=== PATIENT | female | born 1955 | race Caucasian/White ===

== ENCOUNTER 2022-04-08 20:14 | Emergency (ER) | payer MEDICARE, OTHER, SELFPAY ==
[2022-04-08 20:29] VITALS: BP 161/99; PULSE 83; RESP 20; TEMP 36.4; O2SAT 91; BMI 23.9
--- NOTE | 2022-04-08 20:38 | CRLHL7_ITS ---
For Patients: As a result of the Century Cures Act, medical imaging exams and procedure reports are released immediately into your electronic medical record. You may view this report before your referring provider. If you have questions, please contact your health care provider. INDICATION: Fall. TECHNIQUE: Noncontrast CT images acquired through the brain. COMPARISON: None. FINDINGS: The ventricles and sulci are within normal limits for patient age. No mass effect or midline shift. The estrada-white differentiation is maintained. No acute intracranial hemorrhage or pathologic extra-axial fluid collection. Mild atherosclerotic calcifications in the carotid siphons. Anterior right frontal scalp laceration. No calvarial fracture. The globes are symmetric. Minimal mucosal thickening in the ethmoid air cells. The mastoid air cells are clear. IMPRESSION: 1. No acute intracranial hemorrhage or mass effect. 2. Anterior right frontal scalp laceration. No calvarial fracture. Please note that all CT scans at this facility use dose modulation, iterative reconstruction, and/or weight-based dosing when appropriate to reduce radiation dose to as low as reasonably achievable. Dictated by Esteban Bills MD @ 04/08/2022 10:15:57 PM (Electronically Signed)
--- NOTE | 2022-04-08 20:38 | CRLHL7_ITS ---
For Patients: As a result of the Cures Act, medical imaging exams and procedure reports are released immediately into your electronic medical record. You may view this report before your referring provider. If you have questions, please contact your health care provider. Indication: Fall, knee injury. Technique: Three views. Comparison: None. Findings/Impression: No fracture or malalignment. Chondrocalcinosis in the medial and lateral menisci. No joint space narrowing. No large joint effusion. Prominent prepatellar soft tissue swelling/contusion. Dictated by Kike Huerta MD @ 04/08/2022 10:29:28 PM (Electronically Signed)
--- NOTE | 2022-04-08 23:59 | ED.NURSE ---
Dr. Sorensen talked to pt about tdap and refused at this time. looks as if the last td was 07/26/2013
--- NOTE | 2022-04-09 00:06 | ED.GENADULT ---
HPI - General Adult General Date Seen: 04/09/22 Chief complaint: Head Injury/Pain Stated complaint: Fell, hit head Time Seen by Provider: 04/08/22 20:17 Source: patient History of Present Illness HPI narrative: Patient is a 66-year-old woman who presents after losing her balance and falling, hitting her head on a door frame. No loss of consciousness, vomiting, headache. She does not take any blood thinners. She is here with her . He corroborates her story. She did hit her left knee, she is ambulatory without difficulty. She has a large area of swelling on her knee however. That part is sore. She has a small bruise on her left hand as well although that isn't hurting. She denies any neck pain. She has a large laceration vertically oriented on her head, and this blood significantly. Her last tetanus was in 2012. She has no other injuries or complaints. She does not feel dizzy or lightheaded. Her is concerned because sometimes she loses her balance. Apparently this is a fairly sporadic thing but he wonders if they should talk to her primary doctor about it. She feels that generally her balance is good, although she concedes that every few years she does lose her balance and fall, she suffered a broken arm a few years ago due to something similar. Related Data Home Medications Medication Instructions Recorded Confirmed alendronate 35 mg tablet mg PO 04/08/22 fluoxetine 10 mg capsule mg 04/08/22 omeprazole 20 mg capsule,delayed mg 04/08/22 release Allergies Allergy/AdvReac Type Severity Reaction Status Date / Time No Known Drug Allergies Allergy Verified 04/08/22 20:26 Review of Systems Status of ROS: Reports: 10 or more systems reviewed and unremarkable except as noted in History and below [facility] Social History Smoking Status: Former smoker Do you use any of these nicotine containing products: None Second hand tobacco smoke exposure: No How often do you have a drink containing alcohol: 2-3 times a week How many standard drinks containing alcohol do you have on a typical day: 1 or 2 How often do you have six or more drinks on one occasion: Never AUDIT-C Alcohol total score: 3 Non-prescribed substance use: denies use service: No Exam Narrative: Exam Narrative: Vital signs as noted below. In general, an alert, nontoxic woman. Large laceration on her forehead, bleeding controlled. Head: Normocephalic. Eyes: Pupils are equal in reactive. Extraocular movements are full. Conjunctivae are normal. ENT: Mucous membranes are moist. She has a laceration in the mid forehead, vertically oriented, approximately 4.5 cm in length. Bleeding controlled at the initial examination. This extends down to the skull. Neck: Supple without lymphadenopathy. Nontender to palpation. Heart: Regular rate and rhythm. No murmur or rub. Lungs: Clear bilaterally. No increased work of breathing, crackles or wheezes. Abdomen: Soft and nontender. No organomegaly. Extremities: Well perfused. No edema. No calf tenderness. Pulses intact. Small bruise on the left hand, no bony tenderness, no significant swelling. On the, she has a large hematoma on the upper medial aspect of the knee, tenderness there. No bony tenderness, full range of motion, no effusion. Otherwise, extremities are atraumatic. Neurologic: Patient is alert and oriented to person and place. Speech is fluent. Face is symmetric. Moves all extremities equally. Affect: Normal. Skin: Warm and dry. Well perfused. Const: Vital Signs, click to edit/add: Vital Signs - 24 hr 04/08/22 20:29 Temperature 97.5 F L Pulse Rate [Femora l] 83 Respiratory Rate 20 Blood Pressure [Le ft Upper Arm] 161/99 H Pulse Oximetry 91 Oxygen Delivery Me thod Room Air Documenting provider has reviewed patient's vital signs: yes Course Course Hospital Course: Following initial evaluation, patient had a CT scan of the head as well as x-rays of the left knee. By my review, x-rays of the knee are negative for bony fracture or dislocation. CT of the head is negative for hemorrhage. Final radiology report of both the knee and head CT are negative for acute findings. Attention was then turned to the laceration. Procedure note: I anesthetized the wound with lidocaine with epinephrine. It was then cleaned with normal saline. Explored without evidence of foreign body. During irrigation, there were 2 arterial bleeding sites that began to bleed. These had to be identified and tied off using 4-0 Vicryl. Following this, good hemostasis was achieved. I then used [address] deep interrupted sutures, a total of 4, to approximate the skin. I then placed a total of 12 superficial interrupted sutures using 6 0 nylon to close the skin. She tolerated this well, no immediate complication. Antibiotic ointment was placed by the nurse. We discussed wound care including Vaseline ointment during healing, suture removal in 5-7 days, sunscreen daily for 6 months. Return for any signs of infection. Return to the ER for any signs of significant head injury such as severe headache, vomiting, altered mentation. Otherwise, ice can be used on the scalp wound and the knee is needed. Vital Signs Vital signs: Initial Vital Signs Temperature 97.5 F L 04/08/22 20:29 Temperature Source Temporal Artery Scan 04/08/22 20:29 Pulse Rate 83 04/08/22 20:29 Pulse Rhythm 04/08/22 20:29 Respiratory Rate 20 04/08/22 20:29 Blood Pressure 161/99 H 04/08/22 20:29 Blood Pressure Mean 119 04/08/22 20:29 Pulse Oximetry 91 04/08/22 20:29 Oxygen Delivery Method 04/08/22 20:29 Vital Signs Temperature 97.5 F L 04/08/22 20:29 Pulse Rate 83 04/08/22 20:29 Respiratory Rate 20 04/08/22 20:29 Blood Pressure 161/99 H 04/08/22 20:29 Pulse Oximetry 91 04/08/22 20:29 Oxygen Delivery Method 04/08/22 20:29 Temperature 97.5 F L 04/08/22 20:29 Pulse Rate 83 04/08/22 20:29 Respiratory Rate 20 04/08/22 20:29 Blood Pressure 161/99 H 04/08/22 20:29 Pulse Oximetry 91 04/08/22 20:29 Oxygen Delivery Method 04/08/22 20:29 Discharge Plan Discharge Clinical Impression: Complex laceration of forehead, Contusion of knee, left Patient Disposition: Home, Self-Care Condition: Improved Instructions: Laceration (ED) Additional Instructions: Suture removal air clinic in 5-7 days. Tylenol as needed. Ice. Ointment such as Vaseline to laceration liberally over the next week while healing. Return if any signs of infection or significant head injury such as severe headache, vomiting, altered mentation etcetera. Prescriptions: No Action alendronate 35 mg tablet PO fluoxetine 10 mg capsule omeprazole 20 mg capsule,delayed release(DR/EC) Follow Up/Referrals: Merlyn Dacosta MD [Primary Care Provider] - Stand Alone Forms: Embly Info Instructions
== END 2022-04-09 00:03 | disposition home or self-care (01) ==
PROVIDERS: Emergency Provider Emergency Medicine; PCP Internal Medicine
DX: S01.81XA Laceration without foreign body of other part of head, initial encounter (principal); W01.0XXA Fall on same level from slipping, tripping and stumbling without subsequent striking against object, initial encounter
CPT/HCPCS: 13132; 70450; 73562; 99284

== ENCOUNTER 2022-06-02 07:15 | Outpatient (CLI) | payer MEDICARE, OTHER, SELFPAY ==
--- OUTSIDE RECORDS SUMMARY | 2022-06-02 07:18 | XMS_ITS | Clinical Summary ---
:1955 Author Organization [facility] Address [address] [place] [address] Care Team Providers Name Role Phone Unavailable Primary Care Provider Unavailable Source Comments Patient records contain information from all sites at [facility]. For routine questions regarding patient records, call [phone] during business hours, M-F 8:00 AM - 5:00 PM Central Time. Record requests for emergency care only can be directed to [phone] at any time.[facility] Allergies No known active allergies Immunizations Name Administration Dates Next Due SARS-COV-2 (COVID-19) - PFIZER (12 years 06/06/2021, 021, 10/12/2020 or older) SARS-COV-2 (COVID-19) - PFIZER TS(12 01/31/2022 years or older) Social History Tobacco Use Types Packs/Day Years Used Date Smoking Tobacco: Never Assessed Sex Assigned at Date Recorded Not on file Plan of Treatment Health Maintenance Due Date Last Done Comments Bone Density Scan (Osteoporosis 1954 Screen) CT Colonography 1955 Cologuard 1955 Colonoscopy 1955 Colorectal Cancer Screening 1955 FIT 1955 Fasting Glucose for Diabetes 1955 Screening Hepatitis C Screening 1955 Mammogram 1955 Depression Screening (Annual 09/07/2021 PHQ-2) Fall Risk Screen (Annual) 09/07/2021 COVID-19 Vaccine (5 - Booster for 03/28/2022 01/31/2022, , Pfizer series) 11/02/2020, Additional history exists Influenza Vaccine (#1) 2022 05/24/2021, 05/14/2019, 05/22/2018, Additional history exists DTaP,Tdap,and Td Vaccines (2 - Td 07/26/2023 07/26/2013, or Tdap) Zoster Vaccines Completed 07/26/2019, 05/18/2019 Pneumococcal vaccine (65+ years) Completed 05/28/2021, Insurance Payer Benefit Plan / Subscriber ID Effective Phone Address T ype Group Dates MEDICARE RAILROAD [id number] 2019-Prese [address] [place] [address] MEDICA MEDICA PRIME [id number] 2020-Prese [phone] [address] [place] [address]
--- OUTSIDE RECORDS SUMMARY | 2022-06-02 07:18 | XMS_ITS | Encounter Summary ---
:1955 Author Organization [facility] Address [address] [place] [address] Care Team Providers Name Role Phone Unavailable Primary Care Provider Unavailable Reason for Visit Appointment Request (Routine) - Closed Specialty Diagnoses / Procedures Referred By Contact Refer red To Contact Family Medicine Referral ID Status Reason Start Date Expiration Date Visits Requ ested Visits Authorized [id number] Closed 06/01/2021 06/01/2022 1 1 Encounter Details Date Type Department Care Team Description 06/06/2021 Immunization Department of Family Medicine, [facility], in [place], [place] [address], [place] [address] Social History Tobacco Use Types Packs/Day Years Used Date Smoking Tobacco: Never Assessed Sex Assigned at Date Recorded Not on file documented as of this encounter Plan of Treatment Not on filedocumented as of this encounter Visit Diagnoses Not on filedocumented in this encounter
--- OUTSIDE RECORDS SUMMARY | 2022-06-02 07:18 | XMS_ITS ---
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 Medications Name Status Start Date Stop Date ? ? acetaminophen 300 mg-codeine 30 mg tablet Unknown ? Not available Afluria 9556-2801(PF) 45 mcg (15 mcg x 3)/0.5 mL Unknown ? Not available intramuscular syringe amoxicillin 500 mg capsule Active ? Not a vailable Calcium 500 + D Active ? Not available 1 tab po daily ciprofloxacin 500 mg tablet Unknown ? Not available diazepam 5 mg tablet Unknown ? Not availab le doxycycline hyclate 100 mg tablet Unknown ? Not available estradiol 1 mg tablet Unknown ? Not availa ble Fluarix Quad 9225-8256 (PF) 60 mcg (15 mcg x 4)/0.5 mL IM Unknow n ? Not available syringe Flucelvax Quad 1358-9938 (PF) 60 mcg (15 mcg x 4)/0.5 mL Active ? Not available IM syringe Fluzone 6541-3343 45 mcg (15 mcg x 3)/0.5 mL intramuscular Unkno wn ? Not available suspension hydrocodone 10 mg-acetaminophen 325 mg tablet Unknown ? Not available hydrocodone 5 mg-acetaminophen 325 mg tablet Active ? Not available Maxalt Active ? Not available prn migraines naproxen 500 mg tablet Unknown ? Not avail able omeprazole 20 mg capsule,delayed release Active ? Not available ondansetron HCl 8 mg tablet Unknown ? Not available One-A-Day Womens Formula Active ? Not chela ilable 1 tab po daily progesterone micronized 100 mg capsule Unknown ? Not available Prometrium Unknown ? Not available 100 mg PO q hs rizatriptan 10 mg disintegrating tablet Unknown ? Not available Problems Name Status Onset Date Source ? Migraine Active ? History Gastroesophageal Reflux Disease Active ? History Calculus of Kidney and Ureter Active ? Hi story Procedures Date Name Performed by ? 02/19/2012 Colonoscopy Information not avsharon zhang Notes: Diverticula and int ernal hemorrhoids identified; 2 benign polyps removed; repeat recommended in 10 years. 04/07/1984 Information not avai lable 05/08/1981 Information not avai lable 02/04/2013 MAMMO, Screening, Digital, Bilateral Inf ormation not available 02/04/2013 Mammogram, Screening Information not chela ilable 04/27/2014 MAMMO, Screening, Digital, Bilateral Inf ormation not available 08/08/2015 MAMMO, Screening, Digital, Bilateral Inf ormation not available 12/25/2015 X-ray, Shoulder Information not avai lable Results Lab Results Date Name Specimen Result Interpretation Description Value Range Status Address ? 09/26/2015 Urinalysis ? Color dk yellow ? Final [facility] Complete, Clinic (Lab Reflex Culture Se rvices): [address], [place] ? ? ? Clarity cloudy ? Final [facility] ta Clinic (La b Services): [address], [place] ? ? ? Sp [place], 1.010 1.001-1 Final [facility] Urine .035 Clinic (La b Services): [address], [place] ? ? ? Ph 6.0 4.0-8.0 [facility] ([facility] [address], [place] ? ? ABNORMAL Protein trace negativ Final [facility] [place] Clinic (La b Services): [address], [place] ? ? ? Glucose negative negativ Final [facility] [place] e Clinic (La b Services): [address], [place] ? ? ? Ketones negative negativ Final [facility] [place] e Clinic (La b Services): [address], [place] ? ? ABNORMAL Blood 3+ negativ Final [facility] rotary furnace tender e Clinic (La b Services): [address], [place] ? ? ABNORMAL Leukocyte 3+ negativ Final [facility] Esterase e Clinic ( Lab Services): [address], [place] ? ? ABNORMAL Nitrites positive negativ Final [facility] Aaron e Clinic (La b Services): [address], [place] 09/26/2015 Urinalysis, ? Performed manual ? Gladis horvath [facility] Microscopic Clini c (Lab Services): [address], [place] ? ? ABNORMAL Wbc packed 0-2 Final [facility] ta /hpf /hpf Clinic (La b Services): [address] [facility], [place] ? ? ? WBC Clumps present 0-2 Final [facility]hpf Clinic ([place] b Services): [address], [place] ? ? ABNORMAL Rbc 10-20 0-2 Final [facility] ta /hpf /hpf Clinic (La b Services): [address] [facility], [place] ? ? ? Epi Cell 0-2 /hpf ? Final [facility] [place] Clinic (La b Services): [address] [facility], [place] ? ? ABNORMAL Bacteria mod /hpf [facility]-fe [facility] ([facility] Services[facility] [address] [place] [address] 09/26/2015 Culture, Urine URINE ? Culture ? ? ? [facility] Clinic (La b Services): [address] [place] [address] 07/19/2015 Lipid Panel, ? Cholesterol 195 mg/dL 100-1 99 Final [facility] Serum mg/dL Clinic (La b Services): [address] [place] [address] ? ? ? Triglycerid 59 mg/dL 30-[address] [facility] es mg/dL Clinic (La b Services): [address] [place] [address] ? ? High HDL 85 mg/dL 40-59 Final [facility] ta Cholesterol mg/dL Clini c (Lab Services): [address] [place] [address] ? ? ? LDL 98 mg/dL 0-100 Final [facility] Cholesterol mg/dL Clini c (Lab Services): [address] 07/19/2015 Glucose, Serum High Glucose 102 mg/dL 75-99 Final [facility] or Plasma mg/dL Clinic (Lab Services): [address] [place] [address] 03/12/2015 Dermatopatholo ? No ? ? ? [facility] gy, Tissue observation C turner recorded. (Dermat opat hology Services): [address] [facility] 04/28/2014 CBC W/ Auto ? Wbc 6.3 x10-3 3.9-11. Gladis l [facility] Diff uL 3 x10-3 Clinic (L ab uL Services): [address] [place] [address] ? ? ? Rbc 4.17 4.10-5. Final [facility] [place] x10-6 uL 30 Clinic ( Lab x10-6 Services): uL [address], [place] ? ? ? Hgb 13.1 12.0-16 Final [facility] [place] gm/dL .0 Clinic (La b gm/dL Services): [address], [place] ? ? ? Hct 38.6 % 37.0-47 Final [facility] [place] .0 % Clinic (La b Services): [address], [place] ? ? ? Mcv 93 fL 83-99 Final [facility] fL Clinic (La b Services): [address], [place] ? ? ? Mch 31.4 pg 28.0-32 Final Mid [place] ta .0 pg Clinic (La b Services): [address], [place] ? ? ? Mchc 33.9 g/dL 32.0-36 Final Mid [facility] winnie .0 g/dL Clinic (L ab Services): [address], [place] ? ? ? Platelets 192 x10-3 150-400 Final [facility] uL x10-3 Clinic (La b uL Services): [address], [place] ? ? ? Rdw 13.7 10.9-15 Final [facility] [place] .7 Clinic (La b Services): [address], [place] ? ? ? Neutrophils 59.4 % ? Final Mid Aaron % Clinic (La b Services): [address], [place] ? ? ? Lymphocytes 28.9 % ? Final [facility] % Clinic (La b Services): [address], [place] ? ? ? Monocytes% 9.2 % ? Final [facility] [place] Clinic (La b Services): [address], [place] ? ? ? Eosinophils 1.7 % ? Final [facility] % Clinic (La b Services): [address], [place] ? ? ? Basophils% 0.8 % ? Final [facility] [place] Clinic (La b Services): [address], [place] ? ? ? Neut# 3.80 1.80-7. Final [facility] [place] x10-3 uL 70 Clinic ( Lab x10-3 Services): uL [address], [place] ? ? ? Lymph# 1.80 1.00-4. Final Mid [place] ta x10-3 uL 80 Clinic ( Lab x10-3 Services): uL [address] , [place] ? ? ? Monos# 0.60 0.00-0. Final [facility] [place] ta x10-3 uL 80 Clinic ( Lab x10-3 Services): uL [address] , [place] ? ? ? Eos# 0.10 0.00-0. Final [facility] [place] x10-3 uL 45 Clinic ( Lab x10-3 Services): uL [address] , [place] ? ? ? Baso# 0.10 0.00-0. Final [facility] [place] x10-3 uL 20 Clinic ( Lab x10-3 Services): uL [address] [facility], [place] 04/28/2014 Lipid Panel ? Cholesterol 184 mg/dL 100-19 9 Final [facility] mg/dL Clinic (La b Services): [address] [facility], [place] ? ? ? Triglycerid 75 mg/dL 30-149 Final [facility] es mg/dL Clinic (La b Services): [address] [facility], [place] ? ? High HDL 70 mg/dL 40-59 Final Mid [facility] ta Cholesterol mg/dL Clini c (Lab Services): [address] [facility], [place] ? ? ? LDL 99 mg/dL 0-100 Final Mid [facility] ta Cholesterol mg/dL Clini c (Lab Services): [address] [place] [address] 04/28/2014 Comprehensive Low Total 6.0 g/dL 6.2-7.8 Fin al [facility] Metabolic Protein g/dL Clinic (Lab Panel Services): [address] [place] [address] ? ? ? Albumin 3.7 g/dL 3.2-4.6 Final [facility] [place] g/dL Clinic (La b Services): [address] [facility], [place] ? ? ? Calcium 9.5 mg/dL 8.4-10. Final Mid [facility] 2 mg/dL Clinic (L ab Services): [address] [facility], [place] ? ? ? Glucose 88 mg/dL 75-99 Final Mid Da winnie mg/dL Clinic (La b Services): [address] [facility], [place] ? ? ? Total 0.8 mg/dL 0.1-1.3 Final [facility] [place] Bilirubin mg/dL Clinic (Lab Services): [address] , [place] ? ? ? Alk Phos 77 U/L 40-120 Final [facility] [place] rotary furnace tender U/L Clinic (La b Services): [address] , [place] ? ? ? Alt 22 U/L 8-40 Final [facility] U/L Clinic (La b Services): [address] , [place] ? ? ? Ast 24 U/L 17-39 Final [facility] U/L Clinic (La b Services): [address] , [place] ? ? ? Sodium 138 mEq/L 135-145 Final [facility] [place] mEq/L Clinic (La b Services): [address] , [place] ? ? ? Potassium 4.1 mEq/L 3.5-5.1 Final [facility] mEq/L Clinic (La b Services): [address], [place] ? ? ? Chloride 104 mEq/L 101-111 Final [facility] mEq/L Clinic (La b Services): [address], [place] ? ? ? Co2 26 mEq/L 21-32 Final Mid [place] ta mEq/L Clinic (La b Services): [address], [place] ? ? ? Bun 15 mg/dL 10-25 Final Mid [place] ta mg/dL Clinic (La b Services): [address] [place] [address] ? ? ? Creatinine 0.66 0.60-1. Final Mid Aaron mg/dL 10 Clinic (La b mg/dL Services): [address] [facility] 04/28/2014 Glomerular ? GFR >60 >60 Final Nh d [facility] Filtration Estimate mL/min mL/min Clin ic (Lab Rate, Services): Estimated [address] (eGFR) [facility] 04/28/2014 TSH, 3Rd ? Tsh 1.31 0.34-5. Final [facility] Generation mIU/L 60 Clinic (Lab mIU/L Services): [address] [facility] 04/28/2014 T4 Free ? Free T4 0.71 0.58-1. Final [facility] d [facility] NG/dL 64 Clinic (La b NG/dL Services): [address] 07/26/2013 Varicella ? V Zoster by not ? Gladis l [facility] Zoster PCR PCR detected Clin ic (Lab Services): [address] , [place] ? ? ? Source blood ? [facility] [address] [facility] CBC W/ Auto ? Wbc 5.4 x10-3 3.9-11. [facility] Diff [facility] 3 x10-3 Clinic (L ab uL Services): [address] [facility], [place] ? ? ? Rbc 4.20 4.10-5. Final [facility] [place] x10-6 uL 30 Clinic ( Lab x10-6 Services): uL [address] [facility], [place] ? ? ? Hgb 13.4 12.0-16 [facility] .[facility] Clinic (La b gm/dL Services): [address] [facility], [place] ? ? ? Hct 39.6 % 37.0-47 [facility] Clinic (La b Services): [address] [facility], [place] ? ? ? Mcv 94 fL 83-99 Final [facility] f[facility] (La b Services): [address] [facility], [place] ? ? ? Mch 31.9 pg 28.0-32 Final [facility] [place] ta .0 pg Clinic (La b Services): [address] [facility], [place] ? ? ? Mchc 33.9 g/dL 32.0-36 Final [facility] winnie .0 g/dL Clinic (L ab Services): [address] [facility], [place] ? ? ? Platelets 186 x10-3 150-400 Final [facility] d Aaron uL x10-3 Clinic (La b uL Services): [address] [facility], [place] ? ? ? Rdw 13.3 10.9-15 Final [facility] [place] .7 Clinic (La b Services): [address] [facility], [place] ? ? ? Neutrophils 61.4 % 41.0-77 Final [facility] .[facility] % Clinic (La b Services): [address] [facility], [place] ? ? ? Lymphocytes 26.9 % 24.0-44 Final [facility] .[facility] % Clinic (La b Services): [address] [facility], [place] ? ? High Monocytes% 10.4 % 0.0-10. Final Mid Aaron 0 % Clinic (La b Services): [address], [place] ? ? ? Eosinophils 0.7 % 0.0-6.0 Final Mid Aaron % % Clinic (La b Services): [address], [place] ? ? ? Basophils% 0.6 % 0.0-1.0 Final Mid Aaron % Clinic (La b Services): [address], [place] ? ? ? Neut# 3.30 1.80-7. Final Mid [place] x10-3 uL 70 Clinic ( Lab x10-3 Services): uL [address], [place] ? ? ? Lymph# 1.40 1.00-4. Final Mid [place] ta x10-3 uL 80 Clinic ( Lab x10-3 Services): uL [address], [place] ? ? ? Monos# 0.60 0.00-0. Final Mid [place] ta x10-3 uL 80 Clinic ( Lab x10-3 Services): uL [address], [place] ? ? ? Eos# 0.00 0.00-0. Final [facility] [place] x10-3 uL 45 Clinic ( Lab x10-3 Services): uL [address], [place] ? ? ? Baso# 0.00 0.00-0. Final [facility] [place] x10-3 uL 20 Clinic ( Lab x10-3 Services): uL [address], [place] 02/04/2013 Comprehensive ? Total 6.3 g/dL 6.2-7.8 Fin al [facility] Metabolic Protein g/dL Clinic (Lab Panel Services): [address], [place] ? ? ? Albumin 4.0 g/dL 3.2-4.6 Final [facility] [place] g/dL Clinic (La b Services): [address], [place] ? ? ? Calcium 9.4 mg/dL 8.4-10. Final Mid Aaron 2 mg/dL Clinic (L ab Services): [address], [place] ? ? ? Glucose 89 mg/dL 75-99 Final Mid Da winnie mg/dL Clinic (La b Services): [address], [place] ? ? ? Total 1.0 mg/dL 0.1-1.3 Final Mid [facility] w[place] Bilirubin mg/dL Clinic (Lab Services): [address] , [place] ? ? ? Alk Phos 66 U/L 40-120 Final Mid [place] murtaza U/L Clinic (La b Services): [address] , [place] ? ? ? Alt 21 U/L 8-40 Final Mid [facility] U/L Clinic (La b Services): [address] [facility], [place] ? ? ? Ast 22 U/L 17-39 Final [facility] U/L Clinic (La b Services): [address] , [place] ? ? ? Sodium 139 mEq/L 135-145 Final [facility] D [place] mEq/L Clinic (La b Services): [address] [facility], [place] ? ? ? Potassium 4.3 mEq/L 3.5-5.1 Final Mi d Aaron mEq/L Clinic (La b Services): [address] [facility], [place] ? ? ? Chloride 104 mEq/L 101-111 Final Mid [facility] mEq/L Clinic (La b Services): [address] [facility], [place] ? ? ? Co2 26 mEq/L 21-32 Final Mid [place] ta mEq/L Clinic (La b Services): [address] [facility], [place] ? ? ? Bun 17 mg/dL 10-25 Final Mid [place] ta mg/dL Clinic (La b Services): [address] [facility], [place] ? ? Low Creatinine 0.55 0.60-1. Final Mid Aaron mg/dL 10 Clinic (La b mg/dL Services): [address] [place] [address] 02/04/2013 Lipid Panel High Cholesterol 202 mg/dL 100-19 9 Final Mid [facility] mg/dL Clinic (La b Services): [address] [facility], [place] ? ? ? Triglycerid 93 mg/dL 30-149 Final Mi d Aaron es mg/dL Clinic (La b Services): [address] [facility], [place] ? ? High HDL 77 mg/dL 40-59 Final Mid [place] ta Cholesterol mg/dL Clini c (Lab Services): [address] [facility], [place] ? ? High LDL 106 mg/dL 0-100 Final Mid [place] rotary furnace tender Cholesterol mg/dL Clini c (Lab Services): [address] [facility], [place] 02/04/2013 Glomerular ? GFR >60 >60 Final [facility] Filtration Estimate mL/min mL/min Clin ic (Lab Rate, Services): Estimated [address] (eGFR) , [place] 02/04/2013 TSH, 3Rd ? Tsh 0.54 0.34-5. Final Mid [facility] Generation mIU/L 60 Clinic (Lab mIU/L Services): [address] , [place] 02/04/2013 T4 Free ? Free T4 0.80 0.58-1. Final Mi d Aaron NG/dL 64 Clinic (La b NG/dL Services): [address] , [place] 02/04/2013 Cytology ? Cytology ? ? Final M id Aaron Clinic (La b Services): [address] , [place] 12/02/2011 Glomerular ? GFR >60 >60 Final N[facility] Filtration Estimate mL/min mL/min Clin ic Rate, (Historic) : Estimated Bismarc k (eGFR) 12/02/2011 Chemistry 14 Low Total 5.8 g/dL 6.2-7.8 Gladis l [facility] Protein g/dL Clinic (Historic) : [place] ? ? ? Albumin 3.9 g/dL 3.2-4.6 Final [facility] [place] g/dL Clinic (Historic) : [place] ? ? ? Calcium 9.0 mg/dL 8.4-10. Final Mid Aaron 2 mg/dL Clinic (Historic) : [place] ? ? ? Glucose 85 mg/dL 75-99 Final Mid [facility] [place] mg/dL Clinic (Historic) : [place] ? ? ? Total 1.0 mg/dL 0.1-1.3 Final [facility] [place] Bilirubin mg/dL Clinic (Historic) : [place] ? ? ? Alk Phos 60 U/L 40-120 Final Mid [place] murtaza U/L Clinic (Historic) : [place] ? ? ? Alt 17 U/L 8-40 Final Mid [facility] U/L Clinic (Historic) : [place] ? ? ? Ast 18 U/L 17-39 Final [facility] U/L Clinic (Historic) : [place] ? ? ? Sodium 138 mEq/L 135-145 Final [facility] [place] mEq/L Clinic (Historic) : [place] ? ? ? Potassium 4.3 mEq/L 3.5-5.1 Final Mi d Aaron mEq/L Clinic (Historic) : [place] ? ? ? Chloride 103 mEq/L 101-111 Final Mid [facility] mEq/L Clinic (Historic) : [place] ? ? ? Co2 26 mEq/L 21-32 Final Mid [place] ta mEq/L Clinic (Historic) : [place] ? ? ? Bun 16 mg/dL 10-25 Final Mid [place] ta mg/dL Clinic (Historic) : [place] ? ? Low Creatinine 0.53 0.60-1. Final Mid Aaron mg/dL 10 Clinic mg/dL (Historic) : [place] 12/02/2011 CBC W/ Auto ? Wbc 6.6 x10-3 3.9-11. Gladis l [facility] Diff uL 3 x10-3 Clinic uL (Historic) : [place] ? ? Low Rbc 4.05 4.10-5. Final Mid [place] a x10-6 uL 30 Clinic x10-6 (Historic) : uL [place] ? ? ? Hgb 12.8 12.0-16 Final [facility] [place] gm/dL .0 Clinic gm/dL (Historic) : [place] ? ? ? Hct 37.8 % 37.0-47 Final [facility] [place] .0 % Clinic (Historic) : [place] ? ? ? Mcv 93 fL 83-99 Final Mid [place] fL Clinic (Historic) : [place] ? ? ? Mch 31.6 pg 28.0-32 Final Mid [place] ta .0 pg Clinic (Historic) : [place] ? ? ? Mchc 33.9 g/dL 32.0-36 Final Mid [facility] winnie .0 g/dL Clinic (Historic) : [place] ? ? ? Platelets 199 x10-3 150-400 Final Mi d Aaron uL x10-3 Clinic uL (Historic) : [place] ? ? ? Rdw 12.0 10.9-15 Final [facility] [place] .7 Clinic (Historic) : [place] ? ? ? Neutrophils 67.5 % 41.0-77 Final Mid Aaron % .0 % Clinic (Historic) : [place] ? ? Low Lymphocytes 22.9 % 24.0-44 Final Mid Aaron % .0 % Clinic (Historic) : [place] ? ? ? Monocytes% 7.8 % 0.0-10. Final Mid Aaron 0 % Clinic (Historic) : [place] ? ? ? Eosinophils 0.9 % 0.0-6.0 Final Mid Aaron % % Clinic (Historic) : [place] ? ? ? Basophils% 0.9 % 0.0-1.0 Final Mid Aaron % Clinic (Historic) : [place] ? ? ? Neut# 4.40 1.80-7. Final [facility] [place] x10-3 uL 70 Clinic x10-3 (Historic) : uL [place] ? ? ? Lymph# 1.50 1.00-4. Final Mid [place] ta x10-3 uL 80 Clinic x10-3 (Historic) : uL [place] ? ? ? Monos# 0.50 0.00-0. Final Mid [place] ta x10-3 uL 80 Clinic x10-3 (Historic) : uL [place] ? ? ? Eos# 0.10 0.00-0. Final [facility] [place] x10-3 uL 45 Clinic x10-3 (Historic) : uL [place] ? ? ? Baso# 0.10 0.00-0. Final [facility] [place] x10-3 uL 20 Clinic x10-3 (Historic) : uL [place] 12/02/2011 Extra Serum ? No ? ? ? M id Aaron Specimen observation Cli evert recorded. (Histor ic): [place] 12/02/2011 Lipid Panel ? Cholesterol 180 mg/dL 100-19 9 Final Mid Aaron mg/dL Clinic (Historic) : [place] ? ? ? Triglycerid 70 mg/dL 30-149 Final Mi d Aaron es mg/dL Clinic (Historic) : [place] ? ? High HDL 73 mg/dL 40-59 Final Mid [place] ta Cholesterol mg/dL Clini c (Historic) : [place] ? ? ? LDL 93 mg/dL 0-100 Final Mid [place] ta Cholesterol mg/dL Clini c (Historic) : [place] 12/02/2011 Extra ? No ? ? ? Mid Da winnie Lavender-top observation Clinic Tube recorded. (Histor ic): [place] 12/18/2010 Cytology ? Cytology ? ? Final M id Aaron Clinic (Historic) : [place] Past Encounters None recorded. Social History Tobacco Smoking Status Former Smoker Notes: Quit 6 y ears ago, 1 PPD Vaccine List Vaccine Type influenza, injectable, quadrivalent, pre servative free 05/16/2015?0.5 mL Tdap 07/26/2013 varicella 08/01/2013 09/05/2013 Notes: Some vaccines listed in Documen t: #[id number] could not be added to this patient's chart. Please review this document and add these vaccines to the patient's chart manually as needed. up to date Plan of Care Reminders Provider Appointments None recorded. ? ? Lab None recorded. ? ? Referral None recorded. ? ? Procedures None recorded. ? ? Surgeries None recorded. ? ? Imaging None recorded. ? ? Vitals 12/25/2015 08:05AM Today Clinic Height Weight BMI Blood Pressure 5 ft 4 in 122 lbs 20.9 kg/m2 130/78 mm[Hg] 09/26/2015 01:05PM Today Clinic Height Weight BMI Blood Pressure 5 ft 4 in 117 lbs 20.1 kg/m2 136/78 mm[Hg] 07/19/2015 09:00AM Complete Physical Height Weight BMI Blood Pressure 5 ft 4 in 118 lbs 20.3 kg/m2 120/62 mm[Hg] 04/30/2015 08:00AM [facility] Blood Pressure 130/83 mm[Hg] 08/07/2014 09:20AM Today Clinic Height Weight BMI Blood Pressure 5 ft 4 in 114 lbs 19.6 kg/m2 114/78 mm[Hg] 04/27/2014 10:00AM Complete Physical Height Weight BMI Blood Pressure 5 ft 4 in 128 lbs 22 kg/m2 110/60 mm[Hg] 04/18/2014 03:00PM 20 min appt Height Weight BMI Blood Pressure 5 ft 4 in 128 lbs 22 kg/m2 123/81 mm[Hg] 07/26/2013 01:20PM 20 min appt Height Weight BMI Blood Pressure 5 ft 4 in 123 lbs 2 oz 21.1 kg/m2 112/68 mm[Hg] 02/04/2013 09:00AM Complete Physical Height Weight BMI Blood Pressure 5 ft 4 in 121 lbs 20.8 kg/m2 124/74 mm[Hg]
--- OUTSIDE RECORDS SUMMARY | 2022-06-02 07:18 | XMS_ITS | Encounter Summary ---
:1955 Author Organization [facility] Address [address] [place] [address] Care Team Providers Name Role Phone Unavailable Primary Care Provider Unavailable Reason for Visit Appointment Request (Routine) - Closed Specialty Diagnoses / Procedures Referred By Contact Refer red To Contact Family Medicine Referral ID Status Reason Start Date Expiration Date Visits Requ ested Visits Authorized [id number] Closed 01/21/2022 01/21/2023 1 1 Encounter Details Date Type Department Care Team Description 01/31/2022 Immunization Department of Family Medicine, [facility], in [address] [place] [address] Social History Tobacco Use Types Packs/Day Years Used Date Smoking Tobacco: Never Assessed Sex Assigned at Date Recorded Not on file documented as of this encounter Plan of Treatment Not on filedocumented as of this encounter Visit Diagnoses Not on filedocumented in this encounter
== END 2022-06-02 07:16 | disposition home or self-care (01) ==
LOC: OP CLINIC 07:16
PROVIDERS: PCP Internal Medicine; Visit Provider Surgery
DX: Z12.11 Encounter for screening for malignant neoplasm of colon (principal); K63.5 Polyp of colon; K57.30 Diverticulosis of large intestine without perforation or abscess without bleeding; Z86.010 Personal history of colon polyps; Z83.71 Family history of colonic polyps
CPT/HCPCS: 45385; 88305; J2250; J3010

== ENCOUNTER 2023-08-26 12:38 | Outpatient (CLI) | payer MEDICARE, SELFPAY ==
--- NOTE | 2023-08-26 13:00 | CRLHL7_ITS ---
For Patients: As a result of the Century Cures Act, medical imaging exams and procedure reports are released immediately into your electronic medical record. You may view this report before your referring provider. If you have questions, please contact your health care provider. DXA BONE MINERAL DENSITY STUDY, 08/26/2023 Current height (in): 63. Weight (lb): 135. Menopause age: 56. Ethnicity: White. 1. Have you had a previous hip or vertebral fracture? No. 2. Have you had any fractures during your adult life which did not result from significant trauma (e.g., auto accident)? No. 3. Did either of your parents have a hip fracture? Yes. 4. Do you smoke? No. 5. Have you ever taken Glucocorticoids? No. 6. Do you have rheumatoid arthritis? No. 7. Do you have secondary osteoporosis? No. 8. Do you drink 3 or more alcoholic drinks per day? No. 9. Are you being treated for osteoporosis? No. 10. Have you ever taken any of the following medications: Yes, Fosamax, Vitamin D, HRT, Calcium. 11. Do you have any of the following medical conditions: No. 12. What was your maximum height (inches)? 64. 13. Do you perform weight bearing exercise regularly? No. 14. Do you regularly consume dairy products? Yes. 15. Do you drink caffeinated beverages? No. 16. At what age did your period start? 13. 17. Are you premenopausal? No. 18. How many full term pregnancies have you had? 2. 19. Have you ever missed your period for more than 6 months in a row (not including or menopause)? No. TECHNIQUE: Bone mineral density study was performed using the [facility]. FINDINGS: The results of the study expressed as bone mineral density (BMD) are as follows: Lumbar spine L1 to L4 (L2): BMD: 1.108 g/cm2. T-score: 0.5. Z-score: 2.5. Neck Left: BMD: 0.592 g/cm2. T-score: -2.3. Z-score: -0.6. Right: BMD: 0.585 g/cm2. T-score: -2.4. Z-score: -0.7. Total Left: BMD: 0.778 g/cm2. T-score: -1.3. Z-score: 0.1. Right: BMD: 0.771 g/cm2. T-score: -1.4. Z-score: 0.0. Radius Left 33%: BMD: 0.537 g/cm2. T-score: -2.6. Z-score: -0.7. IMPRESSION: Osteoporosis. COMPARISON: Compared with scan of 05/24/2020, the bone mineral density has increased by 11.2 percent at the spine and increased by 3.2 percent at the hip and increased by 0.4 percent at the forearm. Zuleima Garcia M.D. Diagnostic/Breast Radiologist [email or web address] , DW/Dictated by: Zuleima Garcia MD @ 08/28/2023 3:41:00 PM (Electronically Signed)
== END 2023-08-26 12:39 | disposition home or self-care (01) ==
LOC: RAD 12:39
PROVIDERS: PCP Internal Medicine; Visit Provider Internal Medicine
DX: M85.851 Other specified disorders of bone density and structure, right thigh (principal); M81.0 Age-related osteoporosis without current pathological fracture; M85.852 Other specified disorders of bone density and structure, left thigh
CPT/HCPCS: 77080

== ENCOUNTER 2024-03-14 13:44 | Outpatient (CLI) | payer MEDICARE, SELFPAY ==
--- NOTE | 2024-03-14 14:00 | CRLHL7_ITS ---
For Patients: As a result of the Cures Act, medical imaging exams and procedure reports are released immediately into your electronic medical record. You may view this report before your referring provider. If you have questions, please contact your health care provider. BILATERAL SCREENING MAMMOGRAM WITH COMPUTER-AIDED DETECTION AND TOMOSYNTHESIS TECHNIQUE: CC and MLO views were obtained. These mammographic images have been obtained using full-field digital technique. These mammographic images were interpreted with the benefit of computer-aided detection. Breast Tomosynthesis was used in this interpretation. COMPARISON FILM: 02/05/23, 12/11/20, 07/25/19. FINDINGS: The breasts are heterogeneously dense, which may obscure small masses IMPRESSION: There is no radiographic evidence for malignancy. ASSESSMENT: BI-RADS Category 1: Negative RECOMMENDATION: Routine screening mammogram in 1 year. A lay language report of this examination will be provided to the patient. DEX MARTINEZ M.D. Diagnostic/Nuclear Medicine Radiologist [email or web address] Transcribed: 12:55 p.mBeata golden/Dictated by: Dex Martinez MD @ 03/17/2024 8:51:00 AM (Electronically Signed)
== END 2024-03-14 13:45 | disposition home or self-care (01) ==
LOC: MAMMO 13:45
PROVIDERS: PCP Internal Medicine; Visit Provider Internal Medicine
DX: Z12.31 Encounter for screening mammogram for malignant neoplasm of breast (principal); R92.2 Inconclusive mammogram
CPT/HCPCS: 77063; 77067

== ENCOUNTER 2024-06-06 08:35 | Outpatient (CLI) | payer MEDICARE, SELFPAY | END 2024-06-06 08:36 | disposition home or self-care (01) | LOC: NFLDREF 06-08 07:59 | PROVIDERS: PCP Internal Medicine; Referring Provider Internal Medicine; Visit Provider Internal Medicine | DX: M85.80 Other specified disorders of bone density and structure, unspecified site (principal); E78.9 Disorder of lipoprotein metabolism, unspecified; Z13.1 Encounter for screening for diabetes mellitus | CPT/HCPCS: 80061; 82306; 82947 ==

== ENCOUNTER 2025-03-23 14:20 | Outpatient (CLI) | payer MEDICARE, SELFPAY ==
--- NOTE | 2025-03-23 14:40 | CRLHL7_ITS ---
For Patients: As a result of the Century Cures Act, medical imaging exams and procedure reports are released immediately into your electronic medical record. You may view this report before your referring provider. If you have questions, please contact your health care provider. INDICATION: BILATERAL SCREENING MAMMOGRAM, ASYMPTOMATIC 69 Y/O FEMALE COMPARISON: 03/14/2024, 02/05/2023, 12/11/2020 TECHNIQUE: Digital mammogram in CC and MLO projections including computer-aided detection (CAD) and tomosynthesis. BREAST COMPOSITION: There are scattered areas of fibroglandular density. FINDINGS: No suspicious findings. ASSESSMENT: BI-RADS 1 Negative RECOMMENDATION: Annual screening mammogram. A lay language report of this examination will be provided to the patient. Dictated by: Andrey Trotter MD @ 03/24/2025 08:19:29 (Electronically Signed)
== END 2025-03-23 14:21 | disposition home or self-care (01) ==
LOC: MAMMO 14:21
PROVIDERS: PCP Internal Medicine; Visit Provider Internal Medicine
DX: Z12.31 Encounter for screening mammogram for malignant neoplasm of breast (principal)
CPT/HCPCS: 77063; 77067

== ENCOUNTER 2025-06-21 09:01 | Outpatient (CLI) | payer MEDICARE, SELFPAY | END 2025-06-21 09:02 | disposition home or self-care (01) | LOC: NFLDREF 06-23 10:32 | PROVIDERS: PCP Internal Medicine; Referring Provider Internal Medicine; Visit Provider Internal Medicine | DX: M85.80 Other specified disorders of bone density and structure, unspecified site (principal) | CPT/HCPCS: 82306 ==

== ENCOUNTER 2025-07-11 13:35 | Outpatient (CLI) | payer MEDICARE, SELFPAY ==
[2025-07-11 14:26] VITALS: BP 150/98; PULSE 69
--- NOTE | 2025-07-11 14:43 | W.PM.STED ---
Stress Test Note Date Date Seen: 07/11/25 Providers Primary care provider: Merlyn Dacosta Stress test physician: Teja Slater Stress Test Note Stress test ordered: Stress Echo Indication for test: Shortness of breath Results discussion: Patient is a very nice lady presents for the above test after discussion the risks benefits and side effects she would like to proceed. Pretest EKG is reviewed, this shows normal sinus rhythm with a ventricular rate of 69, BP is 158 on 82. Standard Tera protocol is employed over a time course of 3 minutes 47 seconds, she achieved a metabolic equivalent of 5.4 Mets, with a maximum heart rate of 129 which is 100% of the maximum. Her maximum blood pressure is 180 on 94. During this test there is no specific ST wave changes, she did however have numerous PVCs notable. And iregular heart rhythm. Conditioning was felt to be poor Impression: Positive stress test with inducement subjectively of shortness of breath, his objectively no ST wave changes, but inducement of PVCs. Follow up suggested: The tech doing the testing, says stated that her EF changed considerably, this is likely due to her PVCs. She was back to baseline with a normal EF. We will let Cardiology weigh in on this. But she may benefit from a Zio patch, and/or further cardiology assessment. Patient left this testing facility in good condition. Await final report from Cardiology,
== END 2025-07-11 14:27 | disposition home or self-care (01) ==
LOC: STRESS 13:36
PROVIDERS: PCP Internal Medicine; Visit Provider Internal Medicine
DX: R06.09 Other forms of dyspnea (principal)
CPT/HCPCS: 93016; 93325; 93351